=== PATIENT | female | born 1960 | race Caucasian/White ===

== ENCOUNTER 2017-05-29 12:57 | Day surgery (SDC) | payer OTHER ==
[~2017-05-29] VITALS: Ht 165.1 cm; Wt 59.5 kg
[2017-05-29] VITALS (14 sets, daily range): BP systolic 119–164; BP diastolic 65–88; PULSE 80–98; RESP 14–26; Ht 165.1 cm; Wt 59.5 kg
[2017-05-29] MEDS ORDERED: RANI150T9 PO (13:25)
--- NOTE | 2017-05-29 13:46 | RADRPT ---
PROCEDURE: XR Chest. CLINICAL INDICATION: Preop TECHNIQUE: Single portable view of the chest was obtained COMPARISON: No priors for comparison FINDINGS: The trachea is midline. The cardiac silhouette and pulmonary vascularity are within normal limits. T he lungs are clear. The costophrenic angles are sharp. IMPRESSION: 1. No evidence of acute cardiopulmonary disease. RPTAT: [facility] Physician Doni Date Time Electronically viewed and signed by Physician Doni on 05/29/2017 13:46 ANJANA/
[2017-05-29 13:53] LABS: BASOPHILS % 0.6 % (0.0-2.0); EOSINOPHILS # 0.1 10^3/ul (0.0-0.5); EOSINOPHILS % 1.4 % (0.0-7.0); HEMOGLOBIN 13.2 g/dl (12.0-16.0); LYMPHOCYTES # 1.8 10^3/ul (0.8-2.9); LYMPHOCYTES % 28.9 % (15.0-51.0); MEAN CORPUSCULAR HEMOGLOBIN 30.2 pg (29.0-33.0); MEAN CORPUSCULAR HGB CONC 33.8 g/dl (32.0-37.0); MEAN CORPUSCULAR VOLUME 89.2 fl (82.0-101.0); MEAN PLATELET VOLUME 10.1 fl (7.4-10.4); MONOCYTE # 0.4 10^3/ul (0.3-0.9); MONOCYTES % 7.1 % (0.0-11.0); NEUTROPHIL # 3.9 10^3/ul (1.6-7.5); NEUTROPHILS % 61.8 % (39.0-77.0); PLATELET COUNT 223 10^3/UL (140-415); RED BLOOD COUNT 4.37 10^6/ul (4.20-5.40); WHITE BLOOD COUNT 6.2 10^3/ul (4.8-10.8)
[2017-05-29 13:57] LABS: ADD UMIC NO; UR ASCORBIC ACID NEGATIVE (NEGATIVE); UR BILIRUBIN (Dip) NEGATIVE (NEGATIVE); UR BLOOD (Dip) NEGATIVE (NEGATIVE); UR CLARITY CLEAR (CLEAR); UR COLOR STRAW (YELLOW); UR GLUCOSE (Dip) NEGATIVE (NEGATIVE); UR KETONES (Dip) NEGATIVE (NEGATIVE); UR LEUKOCYTE ESTERASE (Dip) NEGATIVE Leu/ul (NEGATIVE); UR NITRITE (Dip) NEGATIVE (NEGATIVE); UR SPECIFIC GRAVITY (Dip) 1.014 (1.003-1.030); UR TOTAL PROTEIN (Dip) NEGATIVE (NEGATIVE); UR UROBILINOGEN (Dip) NEGATIVE (NEGATIVE)
[2017-05-29 14:10] LABS: ALBUMIN 4.3 g/dl (3.3-4.9); ALBUMIN/GLOBULIN RATIO 1.26; BILIRUBIN,INDIRECT 0.3 mg/dl (0-1.1); BILIRUBIN,TOTAL 0.3 mg/dl (0.2-1.3); CALCIUM 10.1 mg/dl (8.4-10.2); CREATININE 0.87 mg/dl (0.44-1.00); POTASSIUM 4.2 mmol/L (3.5-5.1); TOTAL PROTEIN 7.7 g/dl (6.1-8.1)
[2017-05-29 14:20] LABS: INR 0.88; PT RATIO 0.9
[2017-05-29 14:21] LABS: PARTIAL THROMBOPLASTIN TIME 28.8 Sec (25.0-35.0)
--- NOTE | 2017-05-29 15:11 | HPN ---
Date/Time of Note Date/Time of Note DATE: 05/29/17 TIME: 15:10 Interval H&P Admission Note Pt. seen H&P reviewed: No system changes MARIA ESTHER FRANZ MD May 29, 2017 15:11
[2017-05-29] MEDS ORDERED: BUPIVACAINE 0.5% (SDV) 30 ML INJ ONE (15:14)
[2017-05-29] MEDS ORDERED: LIDOCAINE 1%/EPI 30 ML INJ ONE (15:15)
[2017-05-29] MEDS ORDERED: MIDAZOLAM 1 MG/ML 2 ML INJ ONE (15:26)
[2017-05-29] MEDS ORDERED: POLYMYXIN/BACITRACIN 1L IRRIG ONE (16:02)
[2017-05-29] MEDS ORDERED: PROPOFOL 20 ML ONE (17:32)
[2017-05-29] MEDS ORDERED: LIDOCAINE 2% (SDV) 5 ML INJ ONE (17:32)
[2017-05-29] MEDS ORDERED: CEFAZOLIN 1 GM INJ ONE (17:32)
[2017-05-29] MEDS ORDERED: ONDANSETRON 4 MG INJ ONE (17:33)
--- NOTE | 2017-05-29 17:42 | SIPON ---
Date/Time of Note Date/Time of Note DATE: 05/29/17 TIME: 17:39 Operative Report Preoperative Diagnosis cmc of rt thumb arthritis Postoperative Diagnosis same Operation/Procedure Performed mcp joint capsulodesis cmc pyrosphere interposition arthroplasty Surgeon lee ann franz child life assistant staff Anesthesia: general Estimated blood loss: minimal Transfusion Required none Specimen BONE Grafts/Implants PYROSHPERE Complications none MARIA ESTHER FRANZ MD May 29, 2017 17:42
[2017-05-29] MEDS ORDERED: HYDROmorphONE (0.2 MG/ML) 10ML SYG IV PRN ×2 (18:00)
[2017-05-29] MEDS ORDERED: hydrALAzine 20 MG INJ IV PRN (18:00)
[2017-05-29] MEDS ORDERED: FENTAnyl 50 MCG/ML VIAL IV PRN (18:00)
[2017-05-29] MEDS ORDERED: DIPHENHYDRAMINE 50 MG INJ IV PRN (18:00)
[2017-05-29] MEDS ORDERED: LABETALOL HCL 20MG INJ IV PRN (18:00)
[2017-05-29] MEDS ORDERED: ONDANSETRON 4 MG INJ IV PRN (18:00)
[2017-05-29] MEDS ORDERED: MEPERIDINE 25 MG INJ IV PRN (18:00)
[2017-05-29] MEDS ORDERED: HYDROCODONE/APAP (5/325) TAB ONE (18:51)
[2017-05-29] MEDS ORDERED: HYDROCODONE/APAP (5/325) TAB PO ONE (19:00)
--- NOTE | 2017-05-29 22:38 | OPR ---
DATE OF OPERATION: 05/29/2017 PREOPERATIVE DIAGNOSES: 1. Osteoarthritis. 2. Subluxation CMC joint right thumb. 3. Hyperextension laxity MCP joint right thumb. POSTOPERATIVE DIAGNOSES: 1. Osteoarthritis. 2. Subluxation CMC joint right thumb. 3. Hyperextension laxity MCP joint right thumb. PROCEDURES DONE: 1. Volar capsulodesis MCP joint right thumb. 2. CMC joint interposition arthroplasty, PyroSphere implant. SURGEON: Maria Esther Dumont MD ACCOUNT CONSULTANT: Staff. HELIARC WELDER: Arnie Childers MD. ANESTHESIA TECHNIQUE: General anesthetic by the anesthesiologist, local anesthetic by the surgeon. SURGICAL PAUSE: In the preop holding area, I examined the patient, interviewed the patient and her significant other, confirmed the operative procedure and plan, [place] in the site, confirmed the operative procedure. INFORMED CONSENT: At the time we scheduled the operative procedure in the office, we talked about the risks and hazards of surgery, mentioning operative mortality, wound infection, nerve injury, good result, bad result, potential complications. The patient signed the note confirming the informed consent conversation. DESCRIPTION OF PROCEDURE: Sterile prep and drape was performed. A pneumatic tourniquet was inflated.. The hand was exsanguinated with elevation in compression. A pneumatic tourniquet was inflated to 250 mmHg. Part 1: We made a zigzag incision on the volar aspect of the thumb over the MCP joint, retracted the digital nerves behind the retractors and the flexor tendon behind the retractor, exposed the volar plate, and the restricting structures of the MCP joint. Her MCP joint had been stretched out, so she hyperextended a common secondary deformity with severe CMC joint subluxed arthritis. We raised the volar plate off the neck of the metacarpal. We were created a drill hole into the metacarpal and roughen in the area. We placed a piece of 3-0 PDO suture through the volar capsule, flex the MCP joint and pulled it tight up through the drill hole into the thumb metacarpal shaft volarly. We pinned the joint with a little more flexion than we ultimately desire. All these stretch out since you pin it a little more than you want knowing that they will stretch out , some will get back to about where you wanted. I should point out the words some is vague and that is one of the problems everybody has, a little stretch is a little bit different. The suture was tied off to the bone, was tied to the K-wires. We turned our attention to the CMC joint. We did a dorsal incision, exposed the CMC joint of the thumb, exposed the base of the thumb metacarpal and the distal end of the trapezium . WE fouind and protected the superficial radial nerve seen in the field. w-With a saw I resected opposing surfaces, made sure we got all the bone out, made sure that all the horns were removed . With the burs I created opposing cups in the thumb metacarpal and the distal trapezium. Soaked some lidocaine in the area, a little bit of bone wax over the area and removed it. Used tials , we determined that a size 20 fit the best, dropped in a 20 and it fit well. Took x-rays documenting the device the thumb metacarpal from the trapezium. This is an interposition arthroplasty with pyrocarbon. Closed the capsule with Vicryl, reefed so as to bring it in slight hyperextension, and subcuticular Vicryl on the wound. Put a bulky cotton dressing and splint. Operative procedure was around hour and a half. Blood loss was limited. Patient is in good condition in the recovery room. DISCHARGE MEDICATIONS: 1. Hydrocodone with acetaminophen. 2. Keflex. FOLLOWUP: Will be in our office in a week. We will convert it to a short arm thumb spica cast at 1 week. Cast for 6 weeks At 7 weeks, we will remove the K-wire in the CMC joint and any sutures that is on the skin will be cut offf deep. All the deep sutures are absorbable. . With how much force would it take to dislocate one of these devices? I have never had one dislocated any later than 1 week. I put those back and theywere fine. Dislocations are known complication of this device. How much force would it take dislocate late, then possibly now everybody encapsulated develops a different level of stability. Everybody was told to be a little careful particularly early. Dictated By: MARIA ESTHER GOINS/ROXY Conf#: [id number] DID#: [id number] [facility] MEDICAL CENTERFrankie
--- NOTE | 2017-05-31 07:27 | RADRPT ---
PROCEDURE: Intraoperative imaging of the right thumb with fluoroscopy. CLINICAL INDICATION: Right thumb arthroplasty Intraoperative. TECHNIQUE: 7 images of the right thumb were obtained in the operating room with an image intensifi er. No radiologist was in attendance. 0.11 minutes of fluoroscopy time was used. COMPARISON: No prior study is available for comparison. FINDINGS: First carpometacarpal joint arthroplasty in progress is identified. IMPRESSION: 1. Satisfactory intraoperative imaging of the right thumb. Please see separately dictated operative note for full evaluation. RPTAT: [facility] .Josue Kramer MD, MD Date Time Electronically viewed and signed by .Josue Kramer MD, on 05/31/2017 07:27 .K/
== END 2017-05-29 19:31 | disposition home or self-care (01) ==
LOC: SDS 12:57
PROVIDERS: ATTEND Orthopaedic Surgery Hand Surgery
DX: M19.041 Primary osteoarthritis, right hand (principal); M24.841 Other specific joint derangements of right hand, not elsewhere classified
CPT/HCPCS: 25447; 26516; 71010; 73140; 80053; 81003; 85025; 85610; 85730; J0690; J2250; J2405; J3010